=== PATIENT | female | born 1970 | race Caucasian/White ===

== ENCOUNTER 2021-06-04 20:05 | Emergency (ER) | payer OTHER ==
[~2021-06-04] VITALS: Ht 162.6 cm; Wt 142.0 kg
[2021-06-04 20:17] VITALS: BP 157/109
--- NOTE | 2021-06-04 20:23 | NUR ---
LEFT SHOULDER PAIN THAT RADIATES LEFT UPPER BACK X 2 DAYS WITH "ACHEY" CHEST PAIN; DENIES SOB, LEFT ARM PAIN OR JAW PAIN. PAIN OF 10/10 THAT FEELS THROBBING AND ACHING. AAOX4. 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 PATIENT MEDICATED IBUPROFEN AND THE PATCHES BUT STILL FEELS UNRELIEVED. AAOX4. MED HX: DM ALLERGIES: NKA
--- NOTE | 2021-06-04 20:47 | NUR ---
EKG PERFORMED AT BEDSIDE. EKG READS SINUS RHYTHM @ 91
--- NOTE | 2021-06-04 21:20 | NUR ---
notified of 09/09 pain of the patient
--- NOTE | 2021-06-04 21:28 | NUR ---
Dr. Oliver examining patient.
[2021-06-04] MEDS ORDERED: ASPIRIN 325 MG TAB PO ONE (21:55)
[2021-06-04] MEDS ORDERED: NITROGLYCERIN 0.4 MG TAB SL ONE (21:55)
[2021-06-04] MEDS ORDERED: CYCLOBENZAPRINE 10 MG TAB PO ONE (21:55)
--- NOTE | 2021-06-04 22:08 | NUR ---
X-Ray at bedside.
[2021-06-04] MEDS ORDERED: LORazepam 0.5 MG TAB PO ONE (22:15)
[2021-06-04 22:16] LABS: BASOPHILS % (AUTO) 0.1 % (0.0-2.0); EOSINOPHILS # (AUTO) 0.2 K/uL (0-0.4); EOSINOPHILS % (AUTO) 3.6 % (0.0-4.0); HEMATOCRIT 38.3 % (36-48); HEMOGLOBIN 12.7 g/dL (12.0-16.0); LYMPHOCYTES # (AUTO) 1.3 K/uL (2.5-16.5); LYMPHOCYTES % (AUTO) 20.7 % (20.5-51.1); MEAN CORPUSCULAR HEMOGLOBIN 29 pg (27-31); MEAN CORPUSCULAR HGB CONC 33 g/dL (33-37); MONOCYTES # (AUTO) 0.5 K/uL (0.8-1.0); MONOCYTES % (AUTO) 7.8 % (1.7-9.3); NEUTROPHILS # (AUTO) 4.3 K/uL (1.8-7.7); NEUTROPHILS % (AUTO) 67.8 % (42.2-75.2); PLATELET COUNT (AUTO) 235 K/uL (140-450); RED CELL DISTRIBUTION WIDTH 13.3 % (11.6-13.7); WHITE BLOOD COUNT (AUTO) 6.3 K/uL (4.8-10.8)
--- NOTE | 2021-06-04 22:24 | NUR ---
EKG PERFORMED AT BEDSIDE. EKG READS SINUS RHYTHM @ 86
[2021-06-04 22:30] LABS: ALBUMIN 3.9 g/dL (3.4-5.0); CREATININE 0.7 mg/dL (0.6-1.3); TOTAL BILIRUBIN 0.3 mg/dL (0.0-1.0)
--- NOTE | 2021-06-04 23:06 | NUR ---
Patient refused IV insertion.
[2021-06-04] MEDS ORDERED: KETOROLAC 30 MG/ML VIAL IVP ONE (23:30)
[2021-06-04] MEDS ORDERED: ONDANSETRON 4 MG/2 ML VIAL IVP ONE (23:30)
[2021-06-04] MEDS ORDERED: MORPHINE SULFATE 2 MG/ML SYR IVP ONE (23:30)
[2021-06-04] MEDS ORDERED: CYCL-711 PO (23:31)
[2021-06-04] MEDS ORDERED: HYDR-637 PO (23:32)
[2021-06-04 23:54] VITALS: BP 98/43
--- NOTE | 2021-06-04 23:54 | NUR ---
Patient discharged with v/s stable. Written and verbal after care instructions given and explained. Patient alert, oriented and verbalized understanding of instructions. Ambulatory with steady gait. All questions addressed prior to discharge. ID band removed. Patient advised to follow up with PMD. Rx of flexeril, hydroxyzine hcl given. Patient educated on indication of medication including possible reaction and side effects. Opportunity to ask questions provided and answered.
== END 2021-06-04 23:54 | disposition home or self-care (01) ==
LOC: MED 20:05
DX: R07.89 Other chest pain (principal); M79.602 Pain in left arm; E11.9 Type 2 diabetes mellitus without complications; Z79.899 Other long term (current) drug therapy
CPT/HCPCS: 36415; 71045; 73030; 80053; 84484; 85025; 93005; 99285

== ENCOUNTER 2022-03-08 17:51 | Emergency (ER) | payer OTHER ==
[~2022-03-08] VITALS: Ht 162.6 cm; Wt 133.8 kg
[~2022-03-08 17:51] MED LIST: CYCL-711 PO; HYDR-637 PO
[2022-03-08 17:53] VITALS: BP 120/80
--- NOTE | 2022-03-08 18:52 | NUR ---
51 Y/O FEMALE BIB SELF C/O R KNEE PAIN.PAIN RATED 10/10. PAIN IS AGGREVATED WITH WALKING, STANDING, BENDING. PT STATES SHE GETS REGULAR CORTISONE INJECTIONS IN THE R KNEE. LAST INJECTION WAS APPROX. 3 MONTHS AGO AND HER DOCTOR CAN NOT GET HER IN UNTIL MID MARCH. PMH: HTN, DM,HLD MEDS: METFORMIN, ATROVASTATIN NKA
--- NOTE | 2022-03-08 18:52 | NUR ---
TODD BEAN AT PT BEDSIDE
[2022-03-08] MEDS ORDERED: MORPHINE SULFATE 4 MG/ML SYR IM ONE (18:55)
--- NOTE | 2022-03-08 19:15 | NUR ---
Pt report given to JASON KAUR. Transfer of care at this time.
[2022-03-08] MEDS ORDERED: ONDANSETRON 4 MG ODT PO ONE (19:50)
[2022-03-08] MEDS ORDERED: ACET-8386 PO (19:54)
[2022-03-08] MEDS ORDERED: WALK1EAC MC (19:56)
--- NOTE | 2022-03-08 20:05 | NUR ---
Patient discharged with v/s stable. Written and verbal after care instructions given and explained. Patient alert, oriented and verbalized understanding of instructions. Wheel Chair Assisted with steady gait. All questions addressed prior to discharge. ID band removed. Patient advised to follow up with PMD. Rx of [place] () and a walker given. Patient educated on indication of medication including possible reaction and side effects. Opportunity to ask questions provided and answered. VSS, A/OX4, AMBULATORY, UNLABORED BREATHING, AND CALM DEMEANOR. pt was picked up by sister.
[2022-03-08 20:09] VITALS: BP 128/76
== END 2022-03-08 20:05 | disposition home or self-care (01) ==
LOC: MED 17:51
DX: M25.561 Pain in right knee (principal); E11.9 Type 2 diabetes mellitus without complications; Z79.899 Other long term (current) drug therapy
CPT/HCPCS: 29505; 96372; 99283; J2270; Q0162

== ENCOUNTER 2022-11-30 20:11 | Emergency (ER) | payer OTHER ==
[~2022-11-30] VITALS: Ht 162.6 cm; Wt 152.0 kg
[~2022-11-30 20:11] MED LIST changes: +ACET-8905 PO; +WALK1EAC MC
[2022-11-30 20:15] VITALS: BP 147/86
--- NOTE | 2022-11-30 20:27 | NUR ---
PT BIBA BLS ER BED 7
--- NOTE | 2022-11-30 20:36 | NUR ---
Patient being evaluated by physician at bedside.
--- NOTE | 2022-11-30 20:36 | NUR ---
JOSE CONDE AT BEDSIDE EXMAMINING PATIENT
--- NOTE | 2022-11-30 20:51 | NUR ---
APPLIED NONADHERENT GAUZE, GAUZE ROLL, AND JHON WRAP TO ALLOW PRESSURE ON OPEN VARICOSE VEIN TO THE LEFT ANTERIOR TIBIA
[2022-11-30] MEDS ORDERED: SILVER NITRATE APPLICATOR 1 EA SWAB TP ONE ×2 (21:33→21:35)
--- NOTE | 2022-11-30 21:40 | NUR ---
ASSISTED DR. GIBBS WITH PROCEDURE TO STOP VARICOSE VEIN FROM BLEEDING. SILVER NITRATE AND SURGICEL USED. PRESSURE DRESSING APPLIED. PT TOLERATED WELL.
--- NOTE | 2022-11-30 21:45 | NUR ---
PT AMBULATED TO THE BATHROOM WITH A CANE.
[2022-11-30 21:56] VITALS: BP 128/88
--- NOTE | 2022-11-30 21:56 | NUR ---
Patient discharged with v/s stable. Written and verbal after care instructions given and explained. Patient verbalized understanding. ID band removed. Ambulatory with a cane that patient uses daily to the lobby and steady gait. All questions addressed prior to discharge. Advised to follow up with PMD.
== END 2022-11-30 21:56 | disposition home or self-care (01) ==
LOC: MED 20:11
DX: I83.892 Varicose veins of left lower extremity with other complications (principal); E11.9 Type 2 diabetes mellitus without complications; Z79.899 Other long term (current) drug therapy; Z90.49 Acquired absence of other specified parts of digestive tract; Z98.890 Other specified postprocedural states
CPT/HCPCS: 99283

== ENCOUNTER 2023-04-19 22:23 | Emergency (ER) | payer OTHER ==
[~2023-04-19] VITALS: Ht 162.6 cm; Wt 145.1 kg
[2023-04-19 22:32] VITALS: BP 155/71
--- NOTE | 2023-04-19 22:47 | NUR ---
PT TO BED #12
[2023-04-19] MEDS ORDERED: KETOROLAC 60 MG/2 ML VIAL IM ONE (23:10)
[2023-04-19] MEDS ORDERED: CEPH-588 PO ×3 (23:13→23:56)
== END 2023-04-20 00:01 | disposition home or self-care (01) ==
LOC: MED 22:23
DX: L03.116 Cellulitis of left lower limb (principal); I10 Essential (primary) hypertension; E11.9 Type 2 diabetes mellitus without complications; Z79.4 Long term (current) use of insulin; Z79.899 Other long term (current) drug therapy; Z90.49 Acquired absence of other specified parts of digestive tract
CPT/HCPCS: 96372; 99283; J1885